=== PATIENT | female | born 1970 | race Caucasian/White ===

== ENCOUNTER 2017-09-03 05:22 | Emergency (ER) | payer OTHER ==
[~2017-09-03] VITALS: Ht 5283.9 cm; Wt 60.0 kg
[2017-09-03] MEDS ORDERED: tetanus & diphtheria toxoid (Td) vaccine 0.5ml IMVAC ONE (08:20)
[2017-09-03] MEDS ORDERED: CLIN150C2 PO (08:20)
[2017-09-03] MEDS ORDERED: TETanus/Pertussis (Acell)/Diphther VAC/PF (Tdap-Adult) 0.5ml syringe IMVAC ONE (08:30)
[2017-09-03] MEDS ORDERED: ketorolac trometh inj. 60 MG/2 ML VIAL IM ONE (09:55)
[2017-09-03 10:22] VITALS: BP 190/121
== END 2017-09-03 09:45 | disposition home or self-care (01) ==
LOC: ER 05:23
DX: K04.7 Periapical abscess without sinus (principal); M27.2 Inflammatory conditions of jaws; I10 Essential (primary) hypertension; F17.200 Nicotine dependence, unspecified, uncomplicated; Z79.899 Other long term (current) drug therapy
CPT/HCPCS: 90471; 90715; 96372; 99284; J1885

== ENCOUNTER 2017-12-11 22:12 | Emergency (ER) | payer OTHER ==
[~2017-12-11] VITALS: Ht 160 cm; Wt 62.2 kg
[2017-12-11 22:33] VITALS: BP 184/83
[2017-12-11 23:01] LABS: CLARITY,URINE Clear (Clear); COLOR,URINE Yellow (Yellow); GLUCOSE, URINE Negative (Neg); KETONES,URINE Negative (Neg); LEUKOCYTE ESTERASE ,URINE Small (Neg); NITRITES, URINE Negative (Neg); OCCULT BLOOD,URINE Trace (Neg); PH,URINE 6.5 (4.8-8.0); PROTEIN,URINE Negative (Neg)
[2017-12-11 23:17] LABS: UA COLLECTION TYPE CLN CATCH MIDSTREAM
[2017-12-11 23:19] LABS: BACTERIA,URINE FEW /HPF (Neg); RBC,URINE NONE SEEN /HPF (0-2); SQUAMOUS EPITHELIAL CELL,UR FEW /LPF (FEW); WBC,URINE 0-4 /HPF (0-4)
[2017-12-11 23:34] LABS: URINE HCG NEGATIVE (NEG)
[2017-12-11] MEDS ORDERED: BISA-155 PO (23:45)
== END 2017-12-11 23:54 | disposition home or self-care (01) ==
LOC: ER 22:13
DX: K59.00 Constipation, unspecified (principal); R10.9 Unspecified abdominal pain; Z79.899 Other long term (current) drug therapy
CPT/HCPCS: 36415; 81001; 81025; 83690; 87088; 99284